=== PATIENT | female | born 1960 | race Caucasian/White ===

== ENCOUNTER 2021-05-31 20:45 | Emergency (ER) | payer SELFPAY ==
[2021-05-31 21:19] LABS: Hemoglobin 12.5 g/dL (12.0-16.0); Mean Corpuscular HGB CONC 35.4 g/dL (32.0-36.0); Mean Corpuscular Hemoglobin 32.7 pg (27.0-31.0); Mean Corpuscular Volume 92.4 fL (78.0-98.0); Mean Platelet Volume 6.9 fL (7.4-10.4); Platelet Count 185 thou/uL (130-400); Red Blood Cell (RBC) Count 3.83 mill/uL (4.20-5.40); White Blood Cell (WBC) Count 6.7 thou/uL (4.8-10.8)
[2021-05-31] MEDS ORDERED: Promethazine HCl 25 MG/ML VIAL ONE (21:21)
[2021-05-31 21:29] LABS: ALT (SGPT) 24 U/L (8-55); AST (SGOT) 27 U/L (5-34); Albumin 3.8 g/dL (3.4-4.8); Alcohol 90 mg/dL (Less than 10); Alkaline Phosphatase 59 U/L (40-110); Anion Gap 15 mmol/L (10-20); BUN (Urea Nitrogen) 16 mg/dL (9.8-20.1); Bilirubin, Total 0.4 mg/dL (0.2-1.2); CK (CPK) 53 U/L (29-168); Calc. Creatinine Clearance 0 mL/min (70-130); Calcium 8.6 mg/dL (7.8-10.44); Carbon Dioxide 23 mmol/L (23-31); Chloride 107 mmol/L (98-107); Globulin 2.3 g/dL (2.4-3.5); Glucose 110 mg/dL (80-115); Potassium 3.6 mmol/L (3.5-5.1); Protein, Total 6.1 g/dL (5.8-8.1); Sodium 141 mmol/L (136-145)
[2021-05-31 21:33] LABS: MDiff Complete? YES
[2021-05-31 21:34] LABS: Band 2 % (5-11); Eosinophils 6 % (0-10); Lymphocytes 40 % (21-51); Monocytes 11 % (0-10); Neutrophil 31 % (42-75); Reactive Lymphocytes 10 % (0-10)
== END 2021-06-01 00:07 | disposition home or self-care (01) ==
LOC: ERS 20:45
DX: E86.0 Dehydration (principal); R55 Syncope and collapse; R29.700 NIHSS score 0; E03.9 Hypothyroidism, unspecified; M81.0 Age-related osteoporosis without current pathological fracture; I10 Essential (primary) hypertension; Z79.899 Other long term (current) drug therapy
CPT/HCPCS: 70450; 71045; 80053; 80307; 82550; 84484; 85025; 93005; 96365; J2550